=== PATIENT | male | born 1930 | race Caucasian/White ===

== ENCOUNTER 2017-11-05 18:30 | Inpatient (IN) | payer MEDICARE, OTHER ==
--- NOTE | 2017-11-05 19:18 | ED ---
General Adult HPI - General Chief complaint: Neuro Symptoms/Deficit Stated complaint: Poss mini stroke Time Seen by Provider: 11/05/17 18:35 Source: patient, RN notes reviewed Mode of arrival: ambulatory Limitations: no limitations - History of Present Illness Initial comments: This is an 87-year-old male presents emergency department with past medical history significant for diabetes and hypertension. Patient comes into the emergency department today because he is been having intermittent episodes of Double vision starting 10 days ago. Patient states he saw his shelf filler in the shelf filler wanted him to be admitted to the hospital today for these symptoms. Patient states today the double vision has been here but he does have a headache on the left side of his head. Patient denies any weakness or numbness over the last 10 days. Patient denies any speech disturbance of last 10 days. Patient denies any chest pain difficulty breathing or shortness of breath per patient denies any palpitations. Patient denies any abdominal pain patient denies nausea vomiting diarrhea. - Related Data Home Medications Medication Instructions Recorded Confirmed Atenolol 25 mg PO HS 09/18/15 11/05/17 Calcium Polycarbophil [Fibercon] 625 mg PO DAILY 09/18/15 11/05/17 Atorvastatin [Lipitor] 20 mg PO DAILY 01/14/16 11/05/17 Esomeprazole Magnesium [NexIUM] 40 mg PO DAILY 11/05/17 11/05/17 Insulin Aspart [NovoLOG Flexpen] 8 units SQ AC-LUNCH 11/05/17 11/05/17 Insulin Aspart [NovoLOG Flexpen] 18 units SQ AC-SUPPER 11/05/17 11/05/17 Insulin Aspart [NovoLOG Flexpen] 27 units SQ AC-BRKFST 11/05/17 11/05/17 Insulin Glargine,Hum.rec.anlog 37 unit SQ HS 11/05/17 11/05/17 [Lantus Solostar] Tamsulosin HCl [Flomax] 0.4 mg PO BID 11/05/17 11/05/17 hydrALAZINE HCL [Apresoline] 100 mg PO BID 11/05/17 11/05/17 Previous Rx's Medication Instructions Recorded Aspirin [Adult Low Dose Aspirin EC] 81 mg PO DAILY #0 NS 01/18/16 Allergies Allergy/AdvReac Type Severity Reaction Status Date / Time No Known Allergies Allergy Verified 11/05/17 19:19 Review of Systems ROS Statement: Those systems with pertinent positive or pertinent negative responses have been documented in the HPI. ROS Other: All systems not noted in ROS Statement are negative. Past Medical History Past Medical History: Diabetes Mellitus, Deep Vein Thrombosis (DVT), GERD/Reflux , Hyperlipidemia, Hypertension, Prostate Disorder, Sleep Apnea/CPAP/BIPAP Additional Past Medical History / Comment(s): Diabetes mellitus type 2, diabetic neuropathy, obstructive sleep apnea with CPAP, pt lost his blance and fell at home causing 4 broken ribs on the left in 11/2015, celluitis, right DVT 2009, tremors, vertigo History of Any Multi-Drug Resistant Organisms: None Reported Past Surgical History: Heart Catheterization, Hernia Repair, Orthopedic Surgery , Tonsillectomy Additional Past Surgical History / Comment(s): bilateral knee scopes, broken ribs on left side, cataract surgery Past Anesthesia/Blood Transfusion Reactions: No Reported Reaction Past Psychological History: No Psychological Hx Reported Smoking Status: Former smoker Past Alcohol Use History: Occasional, Rare Past Drug Use History: None Reported - Past Family History Father Family Medical History: CVA/TIA, Dementia Additional Family Medical History / Comment(s): Father when he was young from a motor vehicle accident. Mother Family Medical History: CVA/TIA, Hypertension, Myocardial Infarction ([place]) Additional Family Medical History / Comment(s): Mother at age 76 with history of 2 previous strokes. Brother(s) Additional Family Medical History / Comment(s): Patient has 1 brother that in his 70s with history of lung cancer and myocardial infarction. He has a second brother who from lung cancer with history of kidney failure. Sister(s) Additional Family Medical History / Comment(s): Patient has 3 sisters that have . One from lung cancer, one from congestive heart failure, one at age 92 from a brain aneurysm. Son(s) Additional Family Medical History / Comment(s): Patient has 2 sons and one had a myocardial infarction at age 50. He has one daughter with no major medical problems. General Exam - General Exam Comments Initial Comments: GENERAL: Patient is well-developed and well-nourished. Patient is nontoxic and well- hydrated and is in no acute distress. ENT: Neck is soft and supple. No significant lymphadenopathy is noted. Oropharynx is clear. Moist mucous membranes. Neck has full range of motion without eliciting any pain. EYES: The sclera were anicteric and conjunctiva were pink and moist. Patient's left I has somewhat restricted lateral movement compared to the right eye. Eyelids were unremarkable. PULMONARY: Unlabored respirations. Good breath sounds bilaterally. No audible rales rhonchi or wheezing was noted. CARDIOVASCULAR: There is a regular rate and rhythm without any murmurs gallops or rubs. ABDOMEN: Soft and nontender with normal bowel sounds. No palpable organomegaly was noted. There is no palpable pulsatile mass. SKIN: Skin is clear with no lesions or rashes and otherwise unremarkable. NEUROLOGIC: Patient is alert and oriented x3. Cranial nerves II through XII are grossly intact. Motor and sensory are also intact. Normal speech, volume and content. Symmetrical smile. MUSCULOSKELETAL: Normal extremities with adequate strength and full range of motion. LYMPHATICS: No significant lymphadenopathy is noted PSYCHIATRIC: Normal psychiatric evaluation. Normal interpersonal interactions appears functionally intact in deals appropriately with others. No signs of depression. No signs of anxiety. Limitations: no limitations Course Vital Signs 11/05/17 18:32 Temperature 98.2 F Pulse Rate 64 Respiratory 18 Rate Blood Pressure 195/86 O2 Sat by Pulse 95 Oximetry Medical Decision Making - Medical Decision Making EKG shows normal sinus rhythm at 69 bpm. It was 180 QRS is 90 QT interval 360 QTC is 394. Patient's EKG shows no ST segment elevation or depression or T wave abnormalities are noted Chest x-ray shows no acute abnormality. Computed tomography scan shows no acute abnormality. I spoke with Dr. Garcia to breathing or the consult the neurology. - Lab Data Result diagrams: 11/05/17 19:21 11/05/17 19:21 Lab Results 11/05/17 11/05/17 11/05/17 Range/Units 19:21 19:21 19:21 WBC 10.3 (3.8-10.6) k/uL RBC 4.83 (4.30-5.90) m/uL Hgb 14.4 (13.0-17.5) gm/dL Hct 42.7 (39.0-53.0) % MCV 88.4 (80.0-100.0) fL MCH 29.9 (25.0-35.0) pg MCHC 33.8 (31.0-37.0) g/dL RDW 13.9 (11.5-15.5) % Plt Count 229 (150-450) k/uL Neutrophils % 65 % Lymphocytes % 25 % Monocytes % 7 % Eosinophils % 2 % Basophils % 1 % Neutrophils # 6.6 (1.3-7.7) k/uL Lymphocytes # 2.6 (1.0-4.8) k/uL Monocytes # 0.7 (0-1.0) k/uL Eosinophils # 0.2 (0-0.7) k/uL Basophils # 0.1 (0-0.2) k/uL Sodium 140 (137-145) mmol/L Potassium 4.9 (3.5-5.1) mmol/L Chloride 102 (98-107) mmol/L Carbon Dioxide 22 (22-30) mmol/L Anion Gap 16 mmol/L BUN 22 H (9-20) mg/dL Creatinine 1.51 H (0.66-1.25) mg/dL Est GFR (CKD-EPI)AfAm 47 (>60 ml/min/1.73 sqM) Est GFR (CKD-EPI)NonAf 41 (>60 ml/min/1.73 sqM) Glucose 193 H (74-99) mg/dL Calcium 9.4 (8.4-10.2) mg/dL Total Bilirubin 0.5 (0.2-1.3) mg/dL AST 25 (17-59) U/L ALT 27 (21-72) U/L Alkaline Phosphatase 63 (38-126) U/L Total Creatine Kinase 94 (55-170) U/L CK-MB (CK-2) 1.8 (0.0-2.4) ng/mL CK-MB (CK-2) Rel Index 1.9 Troponin I <0.012 (0.000-0.034) ng/mL Total Protein 6.4 (6.3-8.2) g/dL Albumin 4.1 (3.5-5.0) g/dL Disposition Clinical Impression: Cerebrovascular accident Disposition: ADMITTED IP TO THIS [facility] Referrals: Mick Bullock DO [Primary Care Provider] - 1-2 days Time of Disposition: 20:36
[2017-11-05 19:41] LABS: Basophils # (A) 0.1 k/uL (0-0.2); Basophils % (A) 1 %; Eosinophils # (A) 0.2 k/uL (0-0.7); Eosinophils % (A) 2 %; HCT 42.7 % (39.0-53.0); HGB 14.4 gm/dL (13.0-17.5); Lymphocytes # (A) 2.6 k/uL (1.0-4.8); Lymphocytes % (A) 25 %; MCH 29.9 pg (25.0-35.0); MCHC 33.8 g/dL (31.0-37.0); MCV 88.4 fL (80.0-100.0); Mean Platelet Volume 6.6; Monocytes # (A) 0.7 k/uL (0-1.0); Monocytes % (A) 7 %; Neutrophils # (A) 6.6 k/uL (1.3-7.7); Neutrophils % (A) 65 %; Platelet Count 229 k/uL (150-450); RBC 4.83 m/uL (4.30-5.90); RDW 13.9 % (11.5-15.5); WBC 10.3 k/uL (3.8-10.6)
[2017-11-05 19:56] LABS: Albumin 4.1 g/dL (3.5-5.0); Calcium 9.4 mg/dL (8.4-10.2); Potassium 4.9 mmol/L (3.5-5.1); Total Bilirubin 0.5 mg/dL (0.2-1.3); Total Protein 6.4 g/dL (6.3-8.2)
[2017-11-05 19:59] LABS: Creatine Kinase 94 U/L (55-170)
--- NOTE | 2017-11-05 20:11 | CT ---
EXAMINATION TYPE: CT brain wo con DATE OF EXAM: 11/05/2017 COMPARISON: NONE HISTORY: Double vision today. CT DLP: 1618 mGycm Automated exposure control for dose reduction was used. FINDINGS: There is cerebral cortical atrophy. There is no mass effect nor midline shift. There is no sign of in tracranial hemorrhage. Calvarium is intact. IMPRESSION: CEREBRAL ATROPHY. NO ACUTE INTRACRANIAL ABNORMALITY.
[2017-11-05 20:12] LABS: Creatine Kinase MB 1.8 ng/mL (0.0-2.4); Troponin I <0.012 ng/mL (0.000-0.034)
--- NOTE | 2017-11-05 20:12 | XR ---
EXAMINATION TYPE: XR chest 2V DATE OF EXAM: 11/05/2017 COMPARISON: 01/29/2016 HISTORY: Hypertension. Altered mental status. TECHNIQUE: Frontal and lateral views of the chest are obtained. FINDINGS: There is no heart failure nor confluent pneumonic infiltrate. Thoracic aorta is atheromato us. There are chest leads. Bony thorax is intact. There are old left-sided healed rib fractures. IMPRESSION: No active cardiopulmonary disease. No change.
[2017-11-05] MEDS ORDERED: ASPIRIN 325 MG TAB PO STA (20:37)
[2017-11-05 20:59] LABS: Prothrombin Time 10.1 sec (9.0-12.0)
[2017-11-05 21:02] LABS: Partial Thromboplastin Time 18.9 sec (22.0-30.0)
[2017-11-05] MEDS ORDERED: hydrALAZINE HCL 50 MG TAB PO SCH (22:15)
[2017-11-05] MEDS ORDERED: INSULIN DETEMIR 100 UNIT/ML 10 ML VIAL SQ SCH (22:15)
[2017-11-05] MEDS: ATENOLOL 25 MG TAB PO SCH (22:35)
[2017-11-06 03:24] LABS: Cholesterol 115 mg/dL (<200); HDL Cholesterol 23 mg/dL (40-60); LDL Cholesterol,Calculated 32 mg/dL (0-99); Triglycerides 300 mg/dL (<150)
[2017-11-06 08:38] LABS: Glucose,Whole Blood 128 mg/dL (75-99)
[2017-11-06] MEDS ORDERED: ASPIRIN 81 MG PO SCH (09:00)
[2017-11-06] MEDS ORDERED: ASPIRIN 325 MG TAB PO SCH (09:00)
[2017-11-06] MEDS ORDERED: NON-FORMULARY DRUG (Olmesartan/Hydrochlorothiazide [Benicar Hct 40-25 Mg Tablet] 1 TAB) PO SCH (09:00)
[2017-11-06] MEDS: INSULIN ASPART 100 UNIT/ML 1 ML 10 ML VIAL SQ SCH ×3 (09:08→17:45)
[2017-11-06] MEDS: TAMSULOSIN 0.4 MG CAP.ER.24H PO SCH ×2 (09:43→20:45)
[2017-11-06] MEDS: PANTOPRAZOLE 40 MG TABLET PO SCH (09:43)
[2017-11-06] MEDS: ATENOLOL 25 MG TAB PO SCH (10:35)
[2017-11-06] MEDS: CALCIUM POLYCARBOPHIL 625 MG TAB PO SCH (10:36)
[2017-11-06] MEDS: hydrALAZINE HCL 50 MG TAB PO SCH ×2 (10:36→20:45)
[2017-11-06] MEDS: ATORVASTATIN 20 MG TAB PO SCH (10:36)
[2017-11-06] MEDS: HYDROCHLOROTHIAZIDE 25 MG TAB PO SCH (10:36)
[2017-11-06] MEDS: LOSARTAN 50 MG TAB PO SCH (10:37)
[2017-11-06 12:19] LABS: Glucose,Whole Blood 122 mg/dL (75-99)
[2017-11-06 17:32] LABS: Glucose,Whole Blood 135 mg/dL (75-99)
--- NOTE | 2017-11-06 17:58 | HP ---
HISTORY AND PHYSICAL DATE OF ADMISSION: November 05, 2017. DATE OF SERVICE: November 06, 2017 PRESENTING COMPLAINT: Double vision. HISTORY OF PRESENTING COMPLAINT: This is a very pleasant 87-year-old patient of Dr. Bullock. Chronic stable medical conditions include diabetes with neuropathy, GERD, hypertension, hyperlipidemia, obstructive sleep apnea uses CPAP machine and DVT in 2009. For 10 days, the patient noticed some double vision especially looking on the left side. Denies any headache. No change in speech. No trouble eating. No trouble walking. The patient gone to see his product demonstrator Dr. Appiah with whom he informed him about his symptoms and he was sent in. CT scan of the brain in the ER was unremarkable. EKG was unremarkable. The patient had some improvement in symptoms. It may be noted that these symptoms started 10 days ago. REVIEW OF SYSTEMS: CONSTITUTIONAL: None. HEENT none. Respiratory none. Cardiovascular none. Gastrointestinal heartburn. Genitourinary none. Musculoskeletal: None. Dermatological, hematologic, lymphatic none. Psychiatry none. Neurological: Numbness and tingling in the feet. PAST MEDICAL HISTORY: Diabetes mellitus type 2, DVT in 2009, GERD, hypertension, hyperlipidemia, osteoarthritis, prostate disorder, chronic kidney disease, sleep apnea uses CPAP, right foot cellulitis, BPH, diverticulosis, gait dysfunction. PAST SURGICAL HISTORY: Cardiac catheterization, hernia repair, tonsillectomy, bilateral inguinal hernia repair, bilateral knee arthroscopy, benign colon polypectomy, bilateral cataract removal. SOCIAL HISTORY: The patient lives at [facility]. The patient stopped smoking 40 years ago. The patient smoked for 30 years, about 3 packs a day. Alcohol occasionally. FAMILY HISTORY: Of stroke, hypertension and myocardial infarction. HOME MEDICATIONS: 1. Hydralazine 100 mg p.o. b.i.d. 2. Norvasc 5 mg b.i.d. 3. Flomax 0.4 mg b.i.d. 4. Omeprazole 20 mg p.o. daily. 5. Benicar 40/25 1 tab p.o. daily. 6. Toprol-XL 25 mg daily. 7. NovoLog FlexPen 80 units with supper, 8 with lunch, 27 with breakfast. 8. Lantus 37 units q.h.s. 9. Nexium 40 mg a day. 10.Vitamin B12 500 mcg p.o. daily. 11.Vitamin D3 1000 units p.o. daily. 12.FiberCon 625 p.o. daily. 13.Lipitor 20 mg p.o. daily. 14.Aspirin 81 mg p.o. daily. ALLERGIES: None. PHYSICAL EXAMINATION: VITAL SIGNS: On presentation: Temperature 98.2 pulse 64, respiration 18, blood pressure 95/86, pulse ox 95% on room air. GENERAL APPEARANCE: Well built, BMI 35.2, sitting up edge of the bed, comfortable. EYES: Pupils equal. Conjunctivae normal. HEENT: External appearance of nose and ears normal. Oral cavity normal. NECK: JVD not raised. Mass not palpable. RESPIRATORY: Effort normal. Lungs fair entry. CARDIOVASCULAR: 1st and second sounds normal. No edema. ABDOMEN: Soft, nontender. Liver and spleen not palpable LYMPHATICS: No lymph nodes palpable in the neck and axillae. PSYCHIATRY: Alert and oriented x3. Mood and affect normal. NEUROLOGICAL: Pupils equal. Cranial nerves grossly intact. Power and sensation grossly intact. INVESTIGATIONS: White count 10.3, hemoglobin 14.4. Potassium 4.9, BUN 22, creatinine 1.51. Creatinine chronically elevated. CT scan of the brain shows some atrophic changes. Chest x-ray nil acute. EKG normal sinus rhythm. ASSESSMENT: 1. Possible acute stroke occurring about 10 days ago. Still causing some left-sided double vision, though with some improvement. 2. Obesity; BMI 35.2. 3. Diabetes mellitus type 2, chronically on insulin causing peripheral neuropathy. 4. Gastroesophageal reflux disease. 5. Hyperlipidemia. 6. Essential hypertension. 7. Obstructive sleep apnea uses CPAP machine. PLAN: Patient's home medications are resumed. We will do a carotid Doppler. Neuro checks are in place. Care was discussed with the patient. The patient will be on antiplatelet agents and lipid-lowering drugs. Copy to Dr. Bullock. MMLAURENL / MIGUELN: [id number] /
[2017-11-06] MEDS: CYANOCOBALAMIN 500 MCG TAB PO SCH (18:22)
[2017-11-06] MEDS: amLODIPine 5 MG TAB PO SCH (20:45)
[2017-11-06] MEDS: DIPYRIDAMOLE-ASPIRIN 200-25 MG 1 EACH CPMP.12HR PO SCH (20:45)
--- NOTE | 2017-11-06 20:49 | CONS ---
CONSULTATION DATE OF CONSULTATION: 11/06/2017. CHIEF COMPLAINT: Stroke. HISTORY OF PRESENT ILLNESS: Mr. Delgado is a pleasant 87-year-old, male, who is being evaluated by the neurology service per the request of Dr. Harrison for a stroke. The patient was brought into [facility] Emergency Room with a chief complaint of double vision which started 10 days ago. He was evaluated by his bosom presser who told him that he believes he had a stroke after his workup and I advised him to come to the emergency room. A CT scan of the brain was done, which showed generalized atrophy and no acute abnormalities. His CBC, INR, and cardiac enzymes were reviewed and were normal. His comprehensive metabolic profile showed renal insufficiency with a BUN of 22 and creatinine of 1.51. His glucose was elevated at 193. His fasting lipid panel showed elevated triglycerides at 300 and low HDL at 23. The patient was admitted for further workup and management. He does take aspirin daily at home. At the time of my evaluation, the patient is resting in his bed and appears to be in no acute distress. He informs me that his symptoms completely resolved yesterday and denies any recurrence. He denies any neurological symptoms at this time. PAST MEDICAL HISTORY: Diabetes, history of deep venous thrombosis, gastroesophageal reflux disease, dyslipidemia, hypertension, sleep apnea, benign prostatic hypertrophy, peripheral polyneuropathy, history of hernia repair, tonsillectomy, orthopedic surgeries, cataract surgery. SOCIAL HISTORY: The patient is a former smoker. He rarely drinks alcohol. He denies any drug use. FAMILY HISTORY: Positive for strokes, hypertension, heart disease, and dementia, and cancer. HOME MEDICATIONS: Reviewed in the chart. ALLERGIES: No known drug allergies. REVIEW OF SYSTEMS: CONSTITUTIONAL: Negative. EYES: As mentioned above. ENT: Negative. CARDIOVASCULAR: Negative. RESPIRATORY: Negative. NEUROLOGICAL: As mentioned above. He denies any lateralizing numbness or weakness. GASTROINTESTINAL: Positive for occasional heartburn. GENITOURINARY: Negative. PSYCHIATRIC: Negative. MUSCULOSKELETAL: Positive for occasional joint pain. ENDOCRINE: Positive for diabetes. PSYCHIATRIC: Negative. PHYSICAL EXAM: Vital signs show a temperature of 97.8, pulse 61, respiration 17, blood pressure 145/60. GENERAL APPEARANCE: The patient is a well-developed, elderly male, who appears to be in no acute distress. HEENT: Normocephalic, atraumatic. No facial asymmetry is seen, extraocular muscle testing showed decreased lateral gaze involving the left eye. NECK: Supple with no masses felt. CARDIOVASCULAR: Regular rate and rhythm. ABDOMEN: Nontender nondistended. Extremities showed no edema or clubbing. NEUROLOGICAL EXAM: The patient is awake and oriented x3. Speech and language are normal. Strength is full in all 4 extremities. Sensory exam showed diminished light touch sensation in bilateral distal lower extremities. No pronator drift is seen. Cranial nerve testing showed reduced left eye lateral movement. IMPRESSION: 1. Diplopia, improved. 2. Small vessel stroke. 3. Renal insufficiency. 4. Diabetes. 5. Hypertension. 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 He does have left lateral gaze palsy involving the left eye. This is likely due to micro ischemia given his history of diabetes. He does not have any other neurological findings at this time. The patient does take aspirin at home. I will discontinue aspirin and start him on Aggrenox b.i.d. I will order an EEG, serum homocystine level. The patient did have a recent carotid Doppler and we will request the report to review. Continue neuro checks. I will continue to follow with you. Further recommendations to follow. Thank you for allowing me to participate in the care of your patient. If you have any questions, please feel free to contact me. Please send a copy this dictation to Dr. Bullock and Dr. Harrison. MMLAURENL / IJN: [id number] /
[2017-11-06] MEDS ORDERED: INSULIN GLARGINE HUM REC ANLOG 37 UNIT SQ SCH (21:00)
[2017-11-06 21:19] LABS: Glucose,Whole Blood 132 mg/dL (75-99)
[2017-11-06] MEDS: INSULIN DETEMIR 100 UNIT/ML 10 ML VIAL SQ SCH (21:24)
[2017-11-07 05:56] LABS: Glucose,Whole Blood 133 mg/dL (75-99)
[2017-11-07] MEDS: PANTOPRAZOLE 40 MG TABLET PO SCH (06:31)
[2017-11-07] MEDS: INSULIN ASPART 100 UNIT/ML 1 ML 10 ML VIAL SQ SCH ×3 (07:00→18:08)
[2017-11-07] MEDS ORDERED: INSULIN ASPART 100 UNIT/ML 1 ML 10 ML VIAL SQ SCH (07:30)
[2017-11-07] MEDS: CYANOCOBALAMIN 500 MCG TAB PO SCH (08:12)
[2017-11-07] MEDS: ATORVASTATIN 20 MG TAB PO SCH (08:12)
[2017-11-07] MEDS: DIPYRIDAMOLE-ASPIRIN 200-25 MG 1 EACH CPMP.12HR PO SCH ×2 (08:12→22:43)
[2017-11-07] MEDS: CALCIUM POLYCARBOPHIL 625 MG TAB PO SCH (08:12)
[2017-11-07] MEDS: hydrALAZINE HCL 50 MG TAB PO SCH ×3 (08:13→23:02)
[2017-11-07] MEDS: METOPROLOL SUCCINATE (ER) 25 MG TAB.ER.24H PO SCH (08:13)
[2017-11-07] MEDS: LOSARTAN 50 MG TAB PO SCH (08:13)
[2017-11-07] MEDS: HYDROCHLOROTHIAZIDE 25 MG TAB PO SCH (08:13)
[2017-11-07] MEDS: TAMSULOSIN 0.4 MG CAP.ER.24H PO SCH ×2 (08:14→22:43)
[2017-11-07] MEDS: amLODIPine 5 MG TAB PO SCH ×2 (08:15→22:42)
[2017-11-07 11:43] LABS: Glucose,Whole Blood 207 mg/dL (75-99)
--- NOTE | 2017-11-07 13:32 | EEG ---
ELECTROENCEPHALOGRAM REPORT DATE OF SERVICE: 11/07/2017 REASON FOR TESTING: Stroke. DESCRIPTION OF THE PROCEDURE: This EEG was performed using a 21 channel digital electroencephalograph, following international 10-20 system. DESCRIPTION OF THE RECORDING: From the beginning of the tracing, and with patient's eyes closed, the background rhythm was mostly consisting of 9 Hz alpha frequency in the posterior occipital leads. No obvious asymmetry is seen. Photic stimulation was performed with a minimal driving response seen. No pathological waves were elicited. Hyperventilation was not performed. Rare movement artifacts are seen. The patient does reach stage II of sleep during the tracing and occasional sleep spindles are seen. No epileptiform discharges were seen. His EKG lead showed a regular rate and rhythm. INTERPRETATION: This asleep and awake EEG can be considered within normal limits. There was no asymmetry seen. No epileptiform discharges were noticed. The absence of epileptiform discharges does not rule out the diagnosis of epilepsy; therefore clinical correlation is recommended. MELA / VEE: [id number] /
--- NOTE | 2017-11-07 15:46 | P.PN ---
Subjective Progress Note Date: 11/07/17 Principal diagnosis: Diplopia Is a pleasant 87-year-old male continuing to be evaluated by the neurology service for the above complaint. Recall that he had a chief complaint of diplopia for about 10 days prior to his ER visit. The hall monitor's did evaluate him and wanted him worked up for stroke. Recall that his CT of the brain was done and showed no acute ischemic changes. An EEG was performed and it was normal. Given his history of diabetes the likelihood of a sixth cranial nerve palsy was a likely diagnosis. His visual changes seem to be improving a little. He has had no new neurological symptoms since our last exam. At the time of my exam he is resting comfortably in bed in no acute distress. Objective - Vital Signs Vital signs: Vital Signs Temp 97.6 F 11/07/17 14:20 Pulse 68 11/07/17 14:20 Resp 18 11/07/17 14:20 BP 130/60 11/07/17 14:20 Pulse Ox 93 L 11/07/17 14:20 Intake & Output 11/06/17 11/07/17 11/07/17 18:59 06:59 18:59 Intake Total 180 480 Output Total 1452 575 Balance -1272 -575 480 Weight 105.3 kg Intake: Oral 180 480 Output: Urine 1450 575 Stool 2 Other: Voiding Method Urinal Urinal Urinal # Voids 2 - Constitutional General appearance: Present: cooperative, no acute distress - EENT EENT Comment(s): He has decreased left lateral eye movement Eyes: Present: PERRLA. Absent: abnormal pupil, ptosis - Neck Neck: Present: normal ROM. Absent: rigidity - Respiratory Respiratory: negative: prolonged expiration, prolonged inspiration - Cardiovascular Rhythm: regular - Gastrointestinal General gastrointestinal: Absent: distended, tenderness - Neurologic Neurologic Comment(s): The patient is alert awake and oriented 3. Speech and language are normal. There is no facial asymmetry. Strength is 5 out of 5 in bilateral upper and lower extremities. There is no sensory deficit. No tremors or seizures are seen. Cranial nerves II through XII are intact globally, except for sixth cranial nerve findings as above.. - Labs CBC & Chem 7: 11/05/17 19:21 11/05/17 19:21 Labs: Abnormal Lab Results - Last 24 Hours (Table) 11/06/17 11/06/1711/07/18 Range/Units 17:20 21:18 05:55 POC Glucose (mg/dL) 135 H 132 H 133 H (75-99) mg/dL 11/07/17 Range/Units 11:23 POC Glucose (mg/dL) 207 H (75-99) mg/dL Assessment and Plan (1) Diplopia Current Visit: Yes Status: Acute Code(s): H53.2 - DIPLOPIA SNOMED Code(s) : 08182030 (2) Diabetes Current Visit: No Status: Chronic Code(s): E11.9 - TYPE 2 DIABETES MELLITUS WITHOUT COMPLICATIONS SNOMED Code(s): 75442995 (3) HTN (hypertension) Current Visit: No Status: Chronic Code(s): I10 - ESSENTIAL (PRIMARY) HYPERTENSION SNOMED Code(s): 30156869 (4) Hyperlipemia Current Visit: No Status: Chronic Code(s): E78.5 - HYPERLIPIDEMIA, UNSPECIFIED SNOMED Code(s): 70749583 (5) Sixth cranial nerve palsy on examination, left Current Visit: Yes Status: Acute Code(s): H49.22 - SIXTH [ABDUCENT] NERVE PALSY, LEFT EYE SNOMED Code(s): 466004117 Plan: The patient's neurological exam continues to be consistent with a left sixth cranial nerve palsy. This is most likely due to microvascular ischemia given his history of diabetes. Neither his physical exam nor his imaging of the brain suggest acute cerebrovascular event. He will continue Aggrenox twice daily. Mention is made of a recent carotid Doppler. I do not see that in his charts. I will go ahead and order that. We will see him in an outpatient setting to follow some neurological progress. Other than that no further neurological workup is needed. I have performed a history and physical on the above patient. I have reviewed the above note, and agree.
[2017-11-07 17:07] LABS: Glucose,Whole Blood 175 mg/dL (75-99)
[2017-11-07 20:48] LABS: Glucose,Whole Blood 160 mg/dL (75-99)
[2017-11-07] MEDS: INSULIN DETEMIR 100 UNIT/ML 10 ML VIAL SQ SCH (22:43)
[2017-11-07 23:00] VITALS: RESP 16
[2017-11-08 06:14] VITALS: BP 154/70; PULSE 68; TEMP 97.8
[2017-11-08 07:15] LABS: Glucose,Whole Blood 172 mg/dL (75-99)
[2017-11-08] MEDS: LOSARTAN 50 MG TAB PO SCH (08:05)
[2017-11-08] MEDS: hydrALAZINE HCL 50 MG TAB PO SCH (08:06)
[2017-11-08] MEDS: INSULIN ASPART 100 UNIT/ML 1 ML 10 ML VIAL SQ SCH ×2 (08:06→12:15)
[2017-11-08] MEDS: HYDROCHLOROTHIAZIDE 25 MG TAB PO SCH (08:06)
[2017-11-08] MEDS: amLODIPine 5 MG TAB PO SCH (08:06)
[2017-11-08] MEDS: CALCIUM POLYCARBOPHIL 625 MG TAB PO SCH (08:06)
[2017-11-08] MEDS: PANTOPRAZOLE 40 MG TABLET PO SCH (08:06)
[2017-11-08] MEDS: ATORVASTATIN 20 MG TAB PO SCH (08:06)
[2017-11-08] MEDS: METOPROLOL SUCCINATE (ER) 25 MG TAB.ER.24H PO SCH (08:06)
[2017-11-08] MEDS: CYANOCOBALAMIN 500 MCG TAB PO SCH (08:06)
[2017-11-08] MEDS: DIPYRIDAMOLE-ASPIRIN 200-25 MG 1 EACH CPMP.12HR PO SCH (08:06)
[2017-11-08] MEDS: TAMSULOSIN 0.4 MG CAP.ER.24H PO SCH (08:06)
[2017-11-08 08:22] LABS: Calcium 9.7 mg/dL (8.4-10.2); Potassium 4.6 mmol/L (3.5-5.1)
--- NOTE | 2017-11-08 08:39 | PN ---
PROGRESS NOTE DATE OF SERVICE: 11/07/2017 PRESENTING COMPLAINT: Double vision. INTERVAL HISTORY: This patient was seen by me yesterday. Patient presented with double vision and looking to the left side, found to have lateral rectus micro ischemia on antiplatelet agents per Dr. Joel. The patient does feel a bit more weak and tired than baseline. At baseline, has been using a walker. Rehab is being considered. The patient does feel a bit unsteady and unsure about going home at the present time. REVIEW OF SYSTEMS: Review of systems done for constitutional, cardiovascular, GI, pulmonary; relevant findings as above. CURRENT MEDICATIONS: Current medications are reviewed that include Aggrenox and Lipitor. PHYSICAL EXAMINATION: On examination, temperature 97.6, pulse 68, respirations 18, blood pressure 130/60, pulse ox 93% on room air. GENERAL APPEARANCE: Sitting up, comfortable. EYES: Pupils equal. Conjunctivae normal. HENT: External appearance of nose and ears normal. Oral cavity normal. NECK: JVD not raised. Mass not palpable. RESPIRATORY: Effort normal. Lungs are clear. CARDIOVASCULAR: First and second sounds normal. No edema. ABDOMEN: Soft, nontender. Liver and spleen not palpable. PSYCHIATRY: Alert and oriented x3. Mood and affect normal. NEUROLOGICAL: Some weakness of the left lateral rectus with diplopia looking on the left side. Also note from my physical examination from yesterday, this was present. I did not note that yesterday. INVESTIGATIONS: EEG was pending. Accu-Cheks are noted. ASSESSMENT: 1. Possible acute stroke affecting the lateral rectus causing diplopia looking on the left side. 2. Obesity; body mass index 35.2. 3. 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 4. Gastroesophageal reflux disease. 5. Hyperlipidemia. 6. Essential hypertension. 7. Obstructive sleep apnea, uses CPAP machine. 8. Possible chronic kidney disease, stage III from diabetic nephropathy and possible nephrosclerosis. PLAN: PT, OT is involved and so is aids social worker looking at possible inpatient rehab. Will do renal ultrasound and recheck patient's renal function in the morning. MMODL / IJN: [id number] /
[2017-11-08 08:55] LABS: Appearance,Urine Clear (Clear); Bilirubin,Urine Negative (Negative); Blood,Urine Negative (Negative); Color,Urine Light Yellow; Glucose,Urine (UA) Negative (Negative); Ketones,Urine Negative (Negative); Leukocyte Esterase,Urine Negative (Negative); Nitrite,Urine Negative (Negative); PH, Urine 6.5 (5.0-8.0); Protein,Urine 1+ (Negative); RBC,Urine <1 /hpf (0-5); Specific Gravity,Urine 1.005 (1.001-1.035); Urobilinogen,Urine <2.0 mg/dL (<2.0); WBC,Urine 1 /hpf (0-5)
[2017-11-08 11:42] LABS: Glucose,Whole Blood 148 mg/dL (75-99)
--- NOTE | 2017-11-08 11:54 | US ---
EXAMINATION TYPE: US kidneys/renal and bladder DATE OF EXAM: 11/08/2017 COMPARISON: CT 2015, US 2011 CLINICAL HISTORY: assess for ckd. Frequent urination EXAM MEASUREMENTS: Right Kidney: 11.0 x 5.4 x 5.2 cm Left Kidney: 12.0 x 5.3 x 5.8 cm Difficult and limited study due to patient body habitus and overlying bowel gas Right Kidney: no hydronephrosis or masses seen Left Kidney: No hydronephrosis, lateral mid/inferior pole 1.4 x 1.2 x 1.3cm hypoechoic area, possible lobulation vs. lesion (seen on previous CT and US) Bladder: not fully distended Bilateral Jets seen: no Prostate: enlarged at 4.4 x 4.5 x 5.1cm Cortical thinning is present bilaterally. Cortical medullary differentiation maintained within the ki dneys. Prostate is enlarged and shows an inferior impression on the urinary bladder. There is no ascites evident. IMPRESSION: There are some limitations to the exam. Lesion within the midpole the left kidney is not simple cysti c and shows a stable appearance, is indeterminate.
--- NOTE | 2017-11-08 13:57 | DS ---
DISCHARGE SUMMARY DATE OF ADMISSION: 11/05/2017 DATE OF DISCHARGE: 11/08/2017 FINAL DIAGNOSES: 1. Possible acute stroke, likely ischemic affecting the left lateral rectus causing diplopia. 2. Obesity; body mass index 35.2. 3. 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 4. Gastroesophageal reflux disease. 5. Hyperlipidemia. 6. Essential hypertension. 7. Obstructive sleep apnea uses CPAP machine. 8. Chronic kidney disease stage III probably from diabetic nephropathy and possible nephrosclerosis. CONSULTATION: Dr. Joel. HOSPITAL COURSE: This pleasant 87-year-old patient for 10 days presented with double vision, looking to the left side. Initially was sent in from Dr. Appiah's office. CT scan of the brain was unremarkable. EEG was unremarkable. Seen by Dr. Joel because patient is somewhat weak, the patient will be going to inpatient rehab. On examination, patient's left lateral rectus is weak. Lungs are clear. Patient's creatinine is 1.49. Carotid Doppler ultrasound did confirm patient of bilateral cortical thinning. On day of discharge, care was discussed with the patient. Questions were answered. DISCHARGE MEDICATIONS: 1. FiberCon 625 mg p.o. daily. 2. Nexium 40 mg p.o. daily. 3. NovoLog 8 units with lunch, 18 with supper, 27 with breakfast. 4. Lantus 37 units subcu q.h.s. 5. Benicar hydrochlorothiazide 40/25 one tablet p.o. daily. 6. Flomax 0.4 mg p.o. q.h.s. 7. Hydralazine 100 mg p.o. b.i.d. 8. Vitamin D3 one thousand units p.o. daily. 9. Vitamin B12 five hundred mcg p.o. daily. 10.Probiotic 1 capsule p.o. daily. 11.Toprol-XL 25 mg p.o. daily. 12.Norvasc 5 mg p.o. b.i.d. 13.Lipitor 40 mg p.o. daily. 14.Aggrenox 25/200 one tablet p.o. b.i.d. DISPOSITION: [facility]. Follow up with Dr. Small at [facility]; follow up with Dr. Bullock after discharge from [facility]; follow up with Dr. Joel in 10 days. MMODL / IJN: [id number] /
== END 2017-11-08 15:39 | DRG 66 ==
LOC: EC 18:30 → 6SEL 20:36 → 4MS4W 11-07 14:02
PROVIDERS: ADMIT Hospitalist; ATTEND Hospitalist
DX: I63.8 Other cerebral infarction (principal); E11.22 Type 2 diabetes mellitus with diabetic chronic kidney disease; E11.42 Type 2 diabetes mellitus with diabetic polyneuropathy; E11.65 Type 2 diabetes mellitus with hyperglycemia; E66.9 Obesity, unspecified; E78.1 Pure hyperglyceridemia; E78.5 Hyperlipidemia, unspecified; G47.33 Obstructive sleep apnea (adult) (pediatric); H49.22 Sixth [abducent] nerve palsy, left eye; I12.9 Hypertensive chronic kidney disease with stage 1 through stage 4 chronic kidney disease, or unspecified chronic kidney disease; K21.9 Gastro-esophageal reflux disease without esophagitis; N18.3 Chronic kidney disease, stage 3 (moderate); N40.0 Benign prostatic hyperplasia without lower urinary tract symptoms; K57.90 Diverticulosis of intestine, part unspecified, without perforation or abscess without bleeding; M19.90 Unspecified osteoarthritis, unspecified site; R25.1 Tremor, unspecified; R26.9 Unspecified abnormalities of gait and mobility; Z68.35 Body mass index [BMI] 35.0-35.9, adult; Z79.4 Long term (current) use of insulin; Z79.82 Long term (current) use of aspirin; Z79.899 Other long term (current) drug therapy; Z87.891 Personal history of nicotine dependence; Z86.718 Personal history of other venous thrombosis and embolism; Z98.42 Cataract extraction status, left eye; Z98.41 Cataract extraction status, right eye; Z96.1 Presence of intraocular lens; Z86.010 Personal history of colon polyps; Z80.1 Family history of malignant neoplasm of trachea, bronchus and lung; Z82.49 Family history of ischemic heart disease and other diseases of the circulatory system; Z82.3 Family history of stroke; Z84.1 Family history of disorders of kidney and ureter
CPT/HCPCS: 36415; 70450; 71046; 76770; 80048; 80053; 80061; 81001; 82550; 82553; 83090; 84484; 85025; 85610; 85730; 93005; 95819; 99285